=== PATIENT | male | born 1975 | race Caucasian/White ===

== ENCOUNTER 2019-02-28 07:55 | Day surgery (SDC) | payer BC ==
[~2019-02-28] VITALS: Ht 185.4 cm; Wt 115.7 kg
[~2019-02-28 07:55] MED LIST: NORCO 10-325 T1 EACH PO
--- NOTE | 2019-02-28 10:11 | NUR ---
02/28/19 1011 Sheets,[place] 1005 PT ARRIVED TO PACU WITH ORAL AIRWAY IN PLACE AND ON 6L VIA MASK. PT ALSEEP AND NONAROUSABLE TO PAINFUL STIMULI. RESP EVEN AND UNLABORED.
[2019-02-28] MEDS ORDERED: PERCOCET 10-321 EACH PO (12:27)
--- NOTE | 2019-02-28 13:02 | NUR ---
1115: PATIENT BACK IN DAY SURGERY ROOM FROM PACU. VS CHECKED. ABDOMINAL DRESSING CDI. IV SITE WNL. GIVEN ICE WATER AND PUDDING. MEDICATED FOR 4/10 PAIN WITH 2 TABS OF NORCO. SANDWICH ORDERED FOR PATIENT. FAMILY AT BEDSIDE. CALL LIGHT WITHIN REACH. ICE PACK TO ABDOMEN. 1215: PATIENT TOLERATED SANDWICH, PUDDING AND WATER. IV SALINE LOCKED. PATIENT ASSISTED OOB. GAIT STEADY WALKING AROUND ROOM. PATIENT GETTING DRESSED WITH HELP FROM . PATIENT WALKED TO BATHROOM INDEPENDENTLY. 1245: IV DC'D WNL. TIP INTACT, DRESSING APPLIED. DISCHARGE INSTRUCTIONS GIVEN TO PATIENT AND FAMILY. PATIENT DISCHARGED TO HOME VIA WHEELCHAIR WITH FAMILY.
--- NOTE | 2019-03-01 08:10 | OR ---
[facility] [address] [place], [place] [address] Signed DATE OF OPERATION: 02/28/2019 SURGEON: Jo Castillo MD PREOPERATIVE DIAGNOSIS: Incarcerated umbilical hernia (8 mm). POSTOPERATIVE DIAGNOSIS: Incarcerated umbilical hernia (8 mm). PROCEDURE PERFORMED: Primary umbilical herniorrhaphy with intraabdominal Ventralex mesh (4.3 cm). ESTIMATED BLOOD LOSS: None. INDICATIONS: Casimiro is a 43-year-old gentleman I have known for many years. 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 He said he has had an umbilical hernia for several years. 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 He said the last 3 months his umbilical hernia has been causing him a lot of pain. He said it has now popped out and he really cannot get it back inside. He said it was so bad that he was nauseated and vomiting and he ended up having diarrhea. He finally went to his primary care provider. He was asked to see me as a local general surgeon. In the office, Casimiro clearly has an incarcerated umbilical hernia, it is tender, but there are no overlying skin changes. I gave Casimiro a [employer] brochure on hernias. We looked at the sections relevant to him. He understands the nature of an umbilical hernia along with a difference between the primary suture repair and a mesh repair. We also reviewed the expected intraop and postop course. He understands there is risk including, but not limited to bleeding, infection, scarring, change in contour of the skin, damage to bowel infection of mesh requiring removal, recurrent hernias and chronic pain. He had expressed understanding and wished to proceed. PROCEDURE NOTE: I met with Casimiro, his and his mother in our preop area. We all agreed on the umbilical hernia. After this, he was taken into the operating room and placed in the supine position under general LMA anesthesia. He was given preoperative antibiotics along with subcutaneous heparin. SCDs were utilized. He was then prepped and draped in usual sterile fashion. We were able to reduce the umbilical hernia once he was under sedation. A standard infraumbilical transverse incision was made and carried down Electronically Signed By: JO CASTILLO MD 03/01/19 0810 PATIENT NAME: DALI REID OPERATIVE REPORT DATE OF : 77 REPORT #: [id number] PHYSICIAN: JO CASTILLO MD PCP: CHRISTINA LOVE PA-C REPORT IS CONFIDENTIAL AND NOT TO BE RELEASED WITHOUT AUTHORIZATION [facility] [address] [place], [place] [address] Signed around the umbilicus bluntly and with the cautery. The umbilicus was from the fascial defect with the help of the cautery. The redundant hernia sac was completely excised and passed off the field. The fascial defect was around 8 mm. Therefore we chose our 4.3 cm round Ventralex mesh, we placed that in the abdominal cavity and brought up, flushed against the posterior abdominal wall. The fascial defect was closed transversely with a running #1 Prolene suture. Several passes of the suture went through the tab on the mesh to help hold it in place. The tab was cut flush with the abdominal wall and discarded. Local anesthetic was then copiously injected in the abdominal wall and subcutaneous tissues. The wound was irrigated and suctioned out until clear. A 2-0 PDS suture was used to bring the umbilical skin down to the midline fascia. The dermis was then reapproximated with interrupted 3-0 subcuticular Monocryl sutures. The skin edges were reapproximated with a running 6-0 fast absorbing plain gut suture. Dry gauze and tape were then applied. After this, Casimiro was awakened from his anesthesia, extubated in the OR, and taken to recovery room in stable condition. Jo Castillo MD ALB/MODL /[id number] cc: MD Christina Loving PA-C Copies: JO CASTILLO MD, CHLOE K PA-C ~ Electronically Signed By: JO CASTILLO MD 03/01/19 0810 PATIENT NAME: DALI REID OPERATIVE REPORT DATE OF : 77 REPORT #: [id number] PHYSICIAN: JO CASTILLO MD PCP: CHRISTINA LOVE PA-C REPORT IS CONFIDENTIAL AND NOT TO BE RELEASED WITHOUT AUTHORIZATION
== END 2019-02-28 12:45 | disposition home or self-care (01) ==
LOC: DS 07:55
PROVIDERS: Colon & Rectal Surgery
PROC: 0WUF0JZ Supplement Abdominal Wall with Synthetic Substitute, Open Approach (ICD-10-PCS; principal; 2019-02-28 08:30)
DX: K42.0 Umbilical hernia with obstruction, without gangrene (principal); K21.9 Gastro-esophageal reflux disease without esophagitis; G89.29 Other chronic pain
CPT/HCPCS: 00750; C1781; J0131; J0690; J1100; J1170; J1644; J1885; J2250; J2405; J2704; J3010; J7120